=== PATIENT | female | born 1965 | race Caucasian/White ===

== ENCOUNTER 2019-01-31 10:03 | Outpatient (CLI) | payer OTHER ==
--- NOTE | 2019-02-07 13:52 | MMO ---
Bilateral MAMMO Bilat Screen [facility]. CLINICAL HISTORY: Patient is 53 years old and is seen for screening. The patient has no family history of breast cancer. The patient has no personal history of cancer. VIEWS: The views performed were: bilateral craniocaudal with tomosynthesis and bilateral mediolateral oblique with tomosynthesis. FILMS COMPARED: The present examination has been compared to prior imaging studies performed at [facility] [place] on 05/02/2012, 04/29/2013, 09/11/2014 and 02/04/2016. This study has been interpreted with the assistance of computer-aided detection. MAMMOGRAM FINDINGS: The breasts are heterogeneously dense, which could obscure a lesion on mammography. There are stable benign appearing calcifications seen in both breasts. There are no suspicious masses, suspicious calcifications, or new areas of architectural distortion. IMPRESSION: THERE IS NO MAMMOGRAPHIC EVIDENCE OF MALIGNANCY. A ROUTINE FOLLOW-UP MAMMOGRAM IN 1 YEAR IS RECOMMENDED. THE RESULTS OF THIS EXAM WERE SENT TO THE PATIENT. ACR BI-RADS Category 2 - Benign finding MAMMOGRAPHY NOTE: 1. A negative mammogram report should not delay a biopsy if a dominant of clinically suspicious mass is present. 2. Approximately 10% to 15% of breast cancers are not detected by mammography. 3. Adenosis and dense breasts may obscure an underlying neoplasm. Reported by: RONA CALI MD Electonically Signed: [id number]
== END 2019-01-31 10:04 | disposition home or self-care (01) ==
LOC: BICMAMMO 10:03
PROVIDERS: ATTEND Family Medicine Sports Medicine
DX: Z12.31 Encounter for screening mammogram for malignant neoplasm of breast (principal)
CPT/HCPCS: 77063; 77067

== ENCOUNTER 2020-06-22 08:25 | Outpatient (CLI) | payer OTHER ==
--- NOTE | 2020-06-22 09:40 | MMO ---
Bilateral MAMMO Bilat Screen [facility]. CLINICAL HISTORY: Patient is 55 years old and is seen for screening. The patient has no family history of breast cancer. The patient has no personal history of cancer. VIEWS: The views performed were: bilateral craniocaudal with tomosynthesis and bilateral mediolateral oblique with tomosynthesis. FILMS COMPARED: The present examination has been compared to prior imaging studies performed at [facility] on 01/31/2019, and at [facility] on 04/29/2013, 09/11/2014 and 02/04/2016. This study has been interpreted with the assistance of computer-aided detection. MAMMOGRAM FINDINGS: The breasts are heterogeneously dense, which could obscure a lesion on mammography. There are stable benign appearing calcifications seen in both breasts. There are no suspicious masses, suspicious calcifications, or new areas of architectural distortion. IMPRESSION: THERE IS NO MAMMOGRAPHIC EVIDENCE OF MALIGNANCY. A ROUTINE FOLLOW-UP MAMMOGRAM IN 1 YEAR IS RECOMMENDED. THE RESULTS OF THIS EXAM WERE SENT TO THE PATIENT. ACR BI-RADS Category 2 - Benign finding MAMMOGRAPHY NOTE: 1. A negative mammogram report should not delay a biopsy if a dominant of clinically suspicious mass is present. 2. Approximately 10% to 15% of breast cancers are not detected by mammography. 3. Adenosis and dense breasts may obscure an underlying neoplasm. Reported by: RONA CALI MD Electonically Signed: [id number]
--- NOTE | 2020-06-22 10:06 | BD ---
EXAM: DEXA bone density examination HISTORY: 55-year-old postmenopausal female for screening COMPARISON: None FINDINGS: L1--bone mineral density 1.013 g/sq cm; T score 0.2 L2--bone mineral density 0.948 g/sq cm; T score -0.7 L3--bone mineral density 1.011 g/sq cm; T score -0.7 L4--bone mineral density 1.097 g/sq cm; T score 0.3 Total L1-L4--bone mineral density 1.024 g/sq cm; T score -0.2 Left femoral neck--bone mineral density0.700; T score -1.3 Total proximal left femur--bone mineral density 0.893; T score -0.4 IMPRESSION: Osteopenia. This patient has a 10 year WHO fracture risk of a major osteoporotic fracture of 6.5% and of a hip fracture of 0.4%.
== END 2020-06-22 08:26 | disposition home or self-care (01) ==
LOC: BICMAMMO 08:25 → MERGE 08:45
PROVIDERS: ATTEND Family Medicine Sports Medicine
DX: Z12.31 Encounter for screening mammogram for malignant neoplasm of breast (principal); Z13.820 Encounter for screening for osteoporosis; Z78.0 Asymptomatic menopausal state
CPT/HCPCS: 77063; 77067; 77080

== ENCOUNTER 2021-07-08 11:06 | Outpatient (CLI) | payer BC | END 2021-07-08 11:07 | disposition home or self-care (01) | LOC: BICMAMMO 11:06 | PROVIDERS: ATTEND Family Medicine Sports Medicine | DX: Z12.31 Encounter for screening mammogram for malignant neoplasm of breast (principal) | CPT/HCPCS: 77063; 77067 ==

== ENCOUNTER 2023-04-18 08:10 | Outpatient (CLI) | payer BC | END 2023-04-18 08:11 | disposition home or self-care (01) | LOC: BICMAMMO 08:10 | PROVIDERS: ATTEND Family Medicine Sports Medicine | DX: Z12.31 Encounter for screening mammogram for malignant neoplasm of breast (principal); Z80.3 Family history of malignant neoplasm of breast | CPT/HCPCS: 77063; 77067 ==

== ENCOUNTER 2024-04-19 07:58 | Outpatient (CLI) | payer BC | END 2024-04-19 07:59 | disposition home or self-care (01) | LOC: BICMAMMO 07:58 | PROVIDERS: ATTEND Family Medicine Sports Medicine | DX: Z12.31 Encounter for screening mammogram for malignant neoplasm of breast (principal); Z78.0 Asymptomatic menopausal state; M85.89 Other specified disorders of bone density and structure, multiple sites; Z80.3 Family history of malignant neoplasm of breast | CPT/HCPCS: 77063; 77067; 77080 ==

== ENCOUNTER 2025-01-09 13:52 | Outpatient (CLI) | payer BC | END 2025-01-09 13:53 | disposition home or self-care (01) | LOC: BICULT 13:52 | PROVIDERS: ATTEND Family Medicine Sports Medicine | DX: R10.11 Right upper quadrant pain (principal); K76.0 Fatty (change of) liver, not elsewhere classified; R16.0 Hepatomegaly, not elsewhere classified | CPT/HCPCS: 76705 ==

== ENCOUNTER 2025-02-12 10:46 | Outpatient (CLI) | payer BC | END 2025-02-12 10:47 | disposition home or self-care (01) | LOC: MRI 10:46 | PROVIDERS: ATTEND Physician Assistant Medical | DX: K76.0 Fatty (change of) liver, not elsewhere classified (principal); R10.11 Right upper quadrant pain; R16.0 Hepatomegaly, not elsewhere classified | CPT/HCPCS: 74183 ==